=== PATIENT | female | born 1980 | race American Indian/Alaskan Native ===

== ENCOUNTER 2016-12-22 06:42 | Emergency (ER) | payer SELFPAY ==
[2016-12-22 07:35] LABS: Basophils % (Auto) 0.3 % (0.0-1.8); Eosinophils % (Auto) 0.3 % (0.0-4.3); Hematocrit 42.2 % (30.3-42.9); Hemoglobin 13.8 gm/dl (10.1-14.3); Mean Corpuscular HGB Conc 33 % (30-34); Mean Corpuscular Hemoglobin 29 pg (28-32); Mean Corpuscular Volume 89 fl (79-97); Platelet Count 326 K/mm3 (140-440); Red Blood Count 4.73 M/mm3 (3.65-5.03); Red Cell Distribution Width 13.7 % (13.2-15.2); White Blood Count 11.1 K/mm3 (4.5-11.0)
[2016-12-22 07:44] LABS: INR 1.07 (0.87-1.13)
[2016-12-22 07:45] LABS: Partial Thromboplastin Time 32.9 Sec. (24.2-36.6)
[2016-12-22] MEDS ORDERED: ALUM-MAG HYDROX-SIMETH 200-200-20MG/5ML PO ONE (08:00)
--- NOTE | 2016-12-22 08:32 | Emergency Department Report ---
ED Shortness of Breath HPI - General Chief Complaint: Dyspnea/Respdistress Stated Complaint: CHEST PAIN Time Seen by Provider: 12/22/16 07:48 Source: patient Mode of arrival: Ambulatory Limitations: No Limitations - History of Present Illness Initial Comments: 36-year-old female with no significant past medical history presents to the hospital complains of shortness of breath and epigastric tightness. Patient states she woke up at 4 AM this morning with symptoms. Patient initially felt like her bra was too tight but when she removed it did not help her symptoms. Patient complains of feeling short of breath and has tightness as pressure to the epigastric area and right lower posterior thoracic area. Symptoms are intermittent and comes in waves. She denies nausea, vomiting, diaphoresis, burning in her chest wall or pleuritic chest pain. Patient has 3 almost 4 months . She is currently breast-feeding. She denies elevated blood pressure during her but states her blood pressure was elevated about 6 wks afterwards. She has never followed up for repeat blood pressure check. - Related Data Home Medications Medication Instructions Recorded Confirmed Last Taken Ibuprofen [Motrin] 800 mg PO Q8HR PRN 12/22/16 12/22/16 12/22/16 Oxycodone HCl/Acetaminophen 1 each PO Q6HR PRN 12/22/16 12/22/16 12/21/16 [Percocet 2.5/325 mg] Previous Rx's Medication Instructions Recorded Last Taken Type Famotidine [Pepcid] 20 mg PO BID #60 tablet 12/22/16 Unknown Rx Labetalol [Normodyne TAB] 100 mg PO BID #60 tablet 12/22/16 Unknown Rx Mag Hydrox/Al Hydrox/Simeth 20 ml PO QID PRN #1 bottle 12/22/16 Unknown Rx [Maalox Advanced Suspension] Allergies Allergy/AdvReac Type Severity Reaction Status Date / Time No Known Allergies Allergy Verified 12/22/16 06:52 ED Review of Systems ROS: Stated complaint: CHEST PAIN Other details as noted in HPI Comment: All other systems reviewed and negative Other: Constitutional: No fevers chills Eyes: No eye pain visual changes ENT: No ear pain or throat pain Neck: Denies pain Respiratory: Denies cough wheezing Cardiovascular: Denies chest pain, palpitations, syncope GI: Denies nausea, vomiting, diarrhea : Denies dysuria Musculoskeletal: Denies lower back pain Skin: Denies rash, lesions, erythema Neurologic: Denies headache, numbness, weakness Psychiatric: Denies suicidal ideation, hallucinations ED Past Medical Hx - Past Medical History Previous Medical History?: No - Surgical History Past Surgical History?: Yes Additional Surgical History: C SECTION - Social History Smoking Status: Never Smoker Substance Use Type: None - Medications Home Medications: Home Medications Medication Instructions Recorded Confirmed Last Taken Type Famotidine [Pepcid] 20 mg PO BID #60 tablet 12/22/16 Unknown Rx Ibuprofen [Motrin] 800 mg PO Q8HR PRN 12/22/16 12/22/16 12/22/16 History Labetalol [Normodyne TAB] 100 mg PO BID #60 tablet 12/22/16 Unknown Rx Mag Hydrox/Al Hydrox/Simeth 20 ml PO QID PRN #1 bottle 12/22/16 Unknown Rx [Maalox Advanced Suspension] Oxycodone HCl/Acetaminophen 1 each PO Q6HR PRN 12/22/16 12/22/16 12/21/16 History [Percocet 2.5/325 mg] ED Physical Exam - General Limitations: No Limitations - Other Other exam information: General: No limitations, patient is alert in no acute distress Head exam: Atraumatic, normocephalic Eyes exam: Normal appearance, ENT: Moist mucous membrane, normal oropharynx Neck exam: Normal inspection, full range of motion, no meningismus nontender Respiratory exam: Clear to auscultation bilateral, no wheezes, rales, crackles Cardiovascular: Normal rate and rhythm, normal heart sounds Abdomen: Soft, nondistended, epigastric tenderness, with normal bowel sounds, no rebound, or guarding Extremity: Full range of motion normal inspection no deformity, no calf tenderness or edema Back: Normal Inspection, full range of motion, no tenderness Neurologic: Alert, oriented x3, cranial nerves intact, no motor or sensory deficit Psychiatric: normal affect, normal mood Skin: Warm, dry, intact ED Course Vital Signs 12/22/16 12/22/16 12/22/16 06:52 07:57 09:45 Temperature 97.5 F L 97.9 F Pulse Rate 75 75 Respiratory 30 H 16 20 Rate Blood Pressure 158/97 Blood Pressure 150/79 [Left] O2 Sat by Pulse 100 100 100 Oximetry - Reevaluation(s) Reevaluation #1: 12/22/16 10:04 pt given Maalox which resolved her symptoms. BP remains elevated in ED even with pain relief. Labetalol 100mg ordered. ED Medical Decision Making - Lab Data Result diagrams: 12/22/16 07:14 12/22/16 07:14 Lab Results 12/22/16 12/22/16 12/22/16 Range/Units 07:14 07:14 07:14 WBC 11.1 H (4.5-11.0) K/mm3 RBC 4.73 (3.65-5.03) M/mm3 Hgb 13.8 (10.1-14.3) gm/dl Hct 42.2 (30.3-42.9) % MCV 89 (79-97) fl MCH 29 (28-32) pg MCHC 33 (30-34) % RDW 13.7 (13.2-15.2) % Plt Count 326 (140-440) K/mm3 Lymph % (Auto) 19.2 (13.4-35.0) % Boundary % (Auto) 6.8 (0.0-7.3) % Eos % (Auto) 0.3 (0.0-4.3) % Baso % (Auto) 0.3 (0.0-1.8) % Lymph # 2.1 (1.2-5.4) K/mm3 Boundary # 0.7 (0.0-0.8) K/mm3 Eos # 0.0 (0.0-0.4) K/mm3 Baso # 0.0 (0.0-0.1) K/mm3 Seg Neutrophils % 73.4 H (40.0-70.0) % Seg Neutrophils # 8.1 H (1.8-7.7) K/mm3 PT 13.8 (12.2-14.9) Sec. INR 1.07 (0.87-1.13) APTT 32.9 (24.2-36.6) Sec. D-Dimer 262.42 H (0-234) ng/mlDDU Sodium 138 (137-145) mmol/L Potassium 4.1 (3.6-5.0) mmol/L Chloride 99.5 (98-107) mmol/L Carbon Dioxide 23 (22-30) mmol/L Anion Gap 20 mmol/L BUN 12 (7-17) mg/dL Creatinine 0.4 L (0.7-1.2) mg/dL Estimated GFR > 60 ml/min BUN/Creatinine Ratio 30.00 % Glucose 112 H (65-100) mg/dL Calcium 9.4 (8.4-10.2) mg/dL Troponin T < 0.010 (0.00-0.029) ng/mL - EKG Data -: EKG Interpreted by Me (sinus rhythm 73 nonspecific T abnormality) - EKG Data When compared to previous EKG there are: previous EKG unavailable - Radiology Data Radiology results: report reviewed cxr: naf ct angio chest: no acute findings, no pulmonary embolism - Medical Decision Making Patient's symptoms are atypical for [place]. Patient is negative cardiac enzymes and no ST elevation on EKG. Patient's symptoms appeared to be more epigastric in nature and the patient has relief with Maalox. Diagnosis will be dyspepsia/ indigestion/gas. Patient also has mildly elevated blood pressure which she reports has been the case since at least 6 weeks . Patient has not followed up. She will be started on labetalol 100 mg twice a day and outpatient follow-up will be encouraged with her doctor. - Differential Diagnosis hypertension, CHF, PE, GERD, unstable angina Critical Care Time: No Critical care attestation.: If time is entered above; I have spent that time in minutes in the direct care of this critically ill patient, excluding procedure time. ED Disposition Clinical Impression: Indigestion, hypertension Disposition: DISCHARGED TO HOME OR SELFCARE Is pt being admited?: No Does the pt Need Aspirin: No Condition: Stable Instructions: Hypertension (ED), Chronic Indigestion (ED) Additional Instructions: You were treated today for indigestion. Take the medication as prescribed. Your blood pressure is slightly elevated here today. You were started on a blood pressure medication to be taken twice a day. This is a starting dose. You need to be rechecked and monitored while taking this medication. Please follow-up with your doctor for further treatment. Return if symptoms worsen. Prescriptions: Famotidine [Pepcid] 20 mg PO BID #60 tablet Labetalol [Normodyne TAB] 100 mg PO BID #60 tablet Mag Hydrox/Al Hydrox/Simeth [Maalox Advanced Suspension] 20 ml PO QID PRN #1 bottle PRN Reason: Indigestion Referrals: PRIMARY CARE, [Primary Care Provider] - 2-3 Days Time of Disposition: 10:09
--- NOTE | 2016-12-22 08:50 | XRay Report ---
ROUTINE CHEST, TWO VIEWS: SOB. PA and lateral views demonstrate the heart and mediastinal contour to be of normal size and shape. The lungs are clear and fully expanded and the soft tissues and bony structures are normal. IMPRESSION: Normal study.
[2016-12-22 08:51] LABS: Blood Urea Nitrogen 12 mg/dL (7-17); Calcium 9.4 mg/dL (8.4-10.2); Carbon Dioxide 23 mmol/L (22-30); Chloride 99.5 mmol/L (98-107); Glucose 112 mg/dL (65-100); Sodium 138 mmol/L (137-145)
[2016-12-22 08:54] LABS: Anion Gap 20 mmol/L
[2016-12-22] MEDS ORDERED: NACL ONE (08:54)
[2016-12-22 08:55] LABS: Potassium 4.1 mmol/L (3.6-5.0)
--- NOTE | 2016-12-22 09:31 | Cat Scan Report ---
CTA chest: History: Shortness of breath, chest tightness. Findings: No evidence of aortic aneurysm or pulmonary embolism. No pleural or pericardial effusion. No mediastinal mass or adenopathy. No axillary adenopathy. Normal lung parenchyma. No discrete nodularity or consolidation. Impression: No evidence of pulmonary embolism. No evidence of acute changes.
[2016-12-22] MEDS ORDERED: NORMODYNE PO ONE (10:00)
[2016-12-22 10:12] VITALS: BP 160/68
== END 2016-12-22 10:26 | disposition home or self-care (01) ==
LOC: ED 06:42
DX: K30 Functional dyspepsia (principal); R03.0 Elevated blood-pressure reading, without diagnosis of hypertension
CPT/HCPCS: 36415; 71020; 71275; 80048; 84484; 85025; 85379; 85610; 85730; 93005; 93010; 99285; Q9967

== ENCOUNTER 2017-08-01 21:04 | Emergency (ER) | payer OTHER ==
[2017-08-01 21:17] VITALS: BP 149/99
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
== END 2017-08-01 23:40 | disposition home or self-care (01) ==
LOC: ED 21:04
DX: S16.1XXA Strain of muscle, fascia and tendon at neck level, initial encounter (principal); S39.012A Strain of muscle, fascia and tendon of lower back, initial encounter; V49.49XA Driver injured in collision with other motor vehicles in traffic accident, initial encounter; Y93.89 Activity, other specified; Y92.89 Other specified places as the place of occurrence of the external cause; Y99.8 Other external cause status
CPT/HCPCS: 99282